=== PATIENT | female | born 1975 | race Caucasian/White ===

== ENCOUNTER 2016-08-11 21:59 | Inpatient (IN) ==
[2016-08-11 22:33] LABS: Bilirubin,Urine Negative (Negative); Blood,Urine Moderate (Negative); Clarity,Urine Cloudy (Clear); Color,Urine Dark Yellow (Yellow); Glucose,Urine (UA) Normal (Normal); Ketones,Urine Trace mg/dL (Negative); Leukocyte Esterase,Urine Small (Negative); Nitrite,Urine Negative (Negative); PH,Urine 5.5 pH Units (5.0-8.0); Protein,Urine 100 mg/dL (Neg-Trace); Specific Gravity,Urine 1.025 (1.010-1.025); Urobilinogen,Urine Normal (Normal)
[2016-08-11 22:35] LABS: Bacteria,Urine Many per hpf (None-Few); Squamous Epithelial Cell,Urine Many per lpf (None-Few); WBC,Urine 30-50 per hpf (0-3)
[2016-08-11 22:41] LABS: Amphetamine Screen,Urine Negative ng/mL (Cutoff=1000); Barbiturate Screen,Urine Negative ng/mL (Cutoff=200); Benzodiazepines Screen,Urine Negative ng/mL (Cutoff=200); Cannabinoid Screen,Urine Negative ng/mL (Cutoff = 50); Cocaine Screen,Urine Negative ng/mL (Cutoff= 300); Opiate Screen,Urine Negative ng/mL (Cutoff=300); Phencyclidine Screen,Urine Negative ng/mL (Cutoff=25)
[2016-08-11 22:45] LABS: Hyaline Casts,Urine None Seen per lpf (None-Few)
[2016-08-11 22:53] LABS: Basophils % 0.4 %; Eosinophils # 0.1 K/mcL (0.0-0.6); Eosinophils % 0.7 %; Hematocrit 44.5 % (35.3-44.9); Hemoglobin 14.2 g/dL (11.5-15.4); Immature Granulocytes % 0.3 % (0-4); Lymphocytes # 2.5 K/mcL (0.6-4.6); Lymphocytes % 36.6 %; Mean Corpuscular HGB Conc 31.9 g/dL (31.6-35.5); Mean Corpuscular Volume 100.2 fL (83.0-100.0); Mean Platelet Volume 9.2 fL (9.4-12.4); Monocytes # 0.2 K/mcL (0.0-1.3); Monocytes % 3.4 %; Platelet Count 195 K/mcL (140-400); Red Blood Count 4.44 M/mcL (3.82-4.97); Segmented Neutrophils % 58.6 %
[2016-08-11 23:10] LABS: Acetaminophen < 1.0 mcg/mL (10-30); Alanine Aminotransferase 50 Units/L (0-55); Albumin 4.2 g/dL (3.5-5.0); Albumin/Globulin Ratio 1.1 (1.1-2.2); Alkaline Phosphatase 89 Units/L (38-126); Aspartate Amino Transferase 73 Units/L (5-34); BUN/Creatinine Ratio 12 (6-26); Bilirubin,Direct 0.3 mg/dL (0.0-0.5); Bilirubin,Indirect 0.3 mg/dL (0.0-1.2); Bilirubin,Total 0.6 mg/dL (0.2-1.2); Blood Urea Nitrogen 10 mg/dL (7-20); Calcium 8.7 mg/dL (8.6-10.8); Carbon Dioxide 19 mEq/L (19-29); Chloride 105 mEq/L (98-109); Ethanol 350 mg/dL (0-10); Globulin 3.8 g/dL (2.4-3.5); Glucose 70 mg/dL (70-99); Osmolality,Calculated 293 (280-300); Potassium 3.4 mEq/L (3.5-4.5); Salicylate < 5.0 mg/dL (15-30); Sodium 143 mEq/L (136-145); eGFR For African Americans > 60 (> 60); eGFR For Non-African Americans > 60 (> 60)
[2016-08-12] MEDS ORDERED: *HR* LORazepam 1 MG TABLET PO ONE (01:26)
[2016-08-12] MEDS ORDERED: Ondansetron ODT 4 MG TAB.RAPDIS SL ONE (01:35)
--- NOTE | 2016-08-12 03:36 | Emergency Department Note ---
Disposition Clinical Impression: Suicidal ideation Alcohol intoxication Qualifiers: Complication of substance-induced condition: uncomplicated Qualified Code(s): F10.120 - Alcohol abuse with intoxication, uncomplicated Disposition: Still a Patient Condition: Good Referrals: NO,PCP [Primary Care Provider] - Forms: ED Satisfaction Letter Time of Disposition: 06:39 Psych HPI - General Chief Complaint: ED Psychiatric Symptoms Stated Complaint: SI//ETOH Time Seen by Provider: 08/11/16 22:56 Source: patient Nursing Notes Reviewed: Yes Vital Signs Reviewed: Yes - History of Present Illness Pt complaint: suicidal ideation, feels depressed Onset (ago): month(s) Duration: getting worse History of similar episodes: Yes Improves with: none Worsens with: none Context: not taking psychiatric medications, significant life stressor Alleged intoxication: Yes Associated Psychiatric Symptoms: depression, suicidal ideation Associated symptoms: Denies: headache, shortness of breath, nausea, vomiting Self harm or harm to others: admits thoughts of self harm - Related Data Home Medications Medication Instructions Recorded Confirmed Naratriptan HCl [Amerge] 2.5 mg PO DAILY PRN 06/09/15 03/10/16 Quetiapine Fumarate [Seroquel] 25 mg PO HS 06/09/15 03/10/16 Previous Rx's Medication Instructions Recorded Potassium Chloride 20 meq PO DAILY #30 tab.er.prt 06/11/15 Nitrofurantoin (BID) [Macrobid] 100 mg PO BID #14 capsule 03/10/16 Allergies Allergy/AdvReac Type Severity Reaction Status Date / Time azithromycin [From Zithromax] Allergy Vomiting Verified 03/10/16 02:15 cephalexin [From Keflex] Allergy Vomiting Verified 03/10/16 02:15 codeine Allergy Abdominal Verified 03/10/16 02:15 Pain diphenhydramine Allergy Swelling Verified 03/10/16 02:15 [From Benadryl] of Lip/Tongue/Throat Penicillins [PCN] Allergy Hives Verified 03/10/16 02:15 All systems ED: reviewed and negative except as stated. Constitutional: Denies: fever, chills Eyes: Denies: eye pain ENT ED: Denies: ear pain Cardiovascular: Denies: chest pain Respiratory: Denies: cough, dyspnea Gastrointestinal: Denies: abdominal pain, nausea, vomiting Genitourinary: Denies: dysuria Musculoskeletal: Denies: back pain Integumentary: Denies: rash, abrasion Neurological: Denies: headache Psychiatric: Denies: anxiety Endocrine: Denies: fatigue Hematological/Lymphatic: Denies: easy bleeding Allergic/Immunologic: Denies: facial swelling Past Medical History - Past Medical History Medical history: Reports: migraine Psychiatric history: Reports: depression, prior suicide attempt, previous psychiatric hospitalization 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 history: Reports: bilateral tubal ligation - Social History Smoking Status: Current every day smoker Smokeless Tobacco Status: No Alcohol use: Reports: heavy, recent Drug use: Reports: none Physical Exam - General Limitations: no limitations General appearance: alert, in no apparent distress - Head Head exam: atraumatic, normocephalic - Eye Eye exam: Present: EOMI - ENT ENT exam: mucous membranes moist - Neck Neck exam: Present: full ROM - Chest Chest inspection: Present: symmetric chest wall rise - Cardiovascular Cardiovascular exam: Present: regular rate - Abdominal Exam Abdominal exam: Present: soft, Non-Tender - Extremities Exam Extremities exam: Present: full ROM, normal capillary refill - Back Exam Back exam: Present: full ROM - Neurological Exam Neurological exam: Present: alert - Psychiatric Psychiatric exam: Present: normal affect, normal mood - Skin Skin exam: Present: warm, dry, intact, normal color. Absent: rash, cyanosis, diaphoresis Course Course Narrative: Pt presents from home with SI. Pt seen and examined. Friends/family at bedside. Pt hesitent to reveal details but she does admit SI worsening depression and significant life stressors. Initial HR tachy, however this has improved during my exam. Work up initiated for 1a eval - Reevaluation(s) Reevaluation #1: Pt ETOH 350. Pt denies h/o withdrawl. Discussed patient with hospitalist Dr. Jacobs, specifically admission due to intoxication until medically cleared for evaluation. not agreeable to admission at this time. Time: 03:30 Reevaluation #2: Due to change, care of this patient was transferred to md from [facility]. Please see their earlier documentation for details. Time: 06:15 Vital Signs Temperature 98.1 F 08/11/16 22:03 Pulse Rate 143 08/11/16 22:03 Respiratory Rate 14 08/11/16 22:03 Blood Pressure 146/93 08/11/16 22:03 O2 Sat by Pulse Oximetry 95 08/11/16 22:03 Temperature 98.1 F 08/11/16 22:03 Pulse Rate 85 08/12/16 04:11 Respiratory Rate 16 08/12/16 04:11 Blood Pressure 115/77 08/12/16 04:11 O2 Sat by Pulse Oximetry 98 08/12/16 04:11 Oxygen Delivery Oxygen Delivery Room Air Psych - Lab Data Result diagrams: 08/11/16 22:44 08/11/16 22:44 Lab Results 08/11/16 08/11/16 08/11/16 Range/Units 22:26 22:26 22:44 WBC 6.8 (4.3-11.1) K/mcL RBC 4.44 (3.82-4.97) M/mcL Hgb 14.2 (11.5-15.4) g/dL Hct 44.5 (35.3-44.9) % MCV 100.2 H (83.0-100.0) fL MCH 32.0 (28.0-33.3) pg MCHC 31.9 (31.6-35.5) g/dL RDW 14.0 (11.5-14.5) % Plt Count 195 (140-400) K/mcL MPV 9.2 L (9.4-12.4) fL Immature Gran % 0.3 (0-4) % Seg Neutrophils % 58.6 % Lymphocytes % 36.6 % Monocytes % 3.4 % Eosinophils % 0.7 % Basophils % 0.4 % Neutrophils # 4.0 (1.6-8.9) K/mcL Lymphocytes # 2.5 (0.6-4.6) K/mcL Monocytes # 0.2 (0.0-1.3) K/mcL Eosinophils # 0.1 (0.0-0.6) K/mcL Basophils # 0.0 (0.0-0.2) K/mcL Sodium (136-145) mEq/L Potassium (3.5-4.5) mEq/L Chloride (98-109) mEq/L Carbon Dioxide (19-29) mEq/L BUN (7-20) mg/dL Creatinine (0.57-1.11) mg/dL Est GFR ( Amer) (> 60) Est GFR (Non-Af Amer) (> 60) BUN/Creatinine Ratio (6-26) Glucose (70-99) mg/dL Calculated Osmolality (280-300) Calcium (8.6-10.8) mg/dL Total Bilirubin (0.2-1.2) mg/dL Direct Bilirubin (0.0-0.5) mg/dL Indirect Bilirubin (0.0-1.2) mg/dL AST (5-34) Units/L ALT (0-55) Units/L Alkaline Phosphatase (38-126) Units/L Serum Total Protein (6.0-8.3) g/dL Albumin (3.5-5.0) g/dL Globulin (2.4-3.5) g/dL Albumin/Globulin Ratio (1.1-2.2) TSH (0.350-4.840) mcIU/mL Serum , Qual (Negative) Urine Color Dark Yellow (Yellow) Urine Clarity Cloudy A (Clear) Urine pH 5.5 (5.0-8.0) pH Units Ur Specific [place] 1.025 (1.010-1.025) Urine Protein 100 H (Neg-Trace) mg/dL Urine Glucose (UA) Normal (Normal) mg/dL Urine Ketones Trace H (Negative) mg/dL Urine Blood Moderate H (Negative) Urine Nitrite Negative (Negative) Urine Bilirubin Negative (Negative) Urine Urobilinogen Normal (Normal) mg/dL Ur Leukocyte Esterase Small H (Negative) Urine Microscopic RBC 3-5 H (0-3) per hpf Urine Microscopic WBC 30-50 H (0-3) per hpf Ur Squamous Epith Cells Many H (None-Few) per lpf Urine Bacteria Many H (None-Few) per hpf Hyaline Casts None Seen (None-Few) per lpf Salicylates (15-30) mg/dL Urine Opiates Screen Negative (Uastae=527) ng/mL Acetaminophen (10-30) mcg/mL Ur Barbiturates Screen Negative (Zwebxl=984) ng/mL Ur Phencyclidine Scrn Negative (Cutoff=25) ng/mL Ur Amphetamines Screen Negative (Grutle=5252) ng/mL U Benzodiazepines Scrn Negative (Yaqihf=873) ng/mL Urine Cocaine Screen Negative (Cutoff= 300) ng/mL U Marijuana (THC) Screen Negative (Cutoff = 50) ng/mL Ethyl Alcohol (0-10) mg/dL 03/04/17 03/04/17 Range/Units 22:44 22:44 WBC (4.3-11.1) K/mcL RBC (3.82-4.97) M/mcL Hgb (11.5-15.4) g/dL Hct (35.3-44.9) % MCV (83.0-100.0) fL MCH (28.0-33.3) pg MCHC (31.6-35.5) g/dL RDW (11.5-14.5) % Plt Count (140-400) K/mcL MPV (9.4-12.4) fL Immature Gran % (0-4) % Seg Neutrophils % % Lymphocytes % % Monocytes % % Eosinophils % % Basophils % % Neutrophils # (1.6-8.9) K/mcL Lymphocytes # (0.6-4.6) K/mcL Monocytes # (0.0-1.3) K/mcL Eosinophils # (0.0-0.6) K/mcL Basophils # (0.0-0.2) K/mcL Sodium 143 (136-145) mEq/L Potassium 3.4 L (3.5-4.5) mEq/L Chloride 105 (98-109) mEq/L Carbon Dioxide 19 (19-29) mEq/L BUN 10 (7-20) mg/dL Creatinine 0.86 (0.57-1.11) mg/dL Est GFR ( Amer) > 60 (> 60) Est GFR (Non-Af Amer) > 60 (> 60) BUN/Creatinine Ratio 12 (6-26) Glucose 70 (70-99) mg/dL Calculated Osmolality 293 (280-300) Calcium 8.7 (8.6-10.8) mg/dL Total Bilirubin 0.6 (0.2-1.2) mg/dL Direct Bilirubin 0.3 (0.0-0.5) mg/dL Indirect Bilirubin 0.3 (0.0-1.2) mg/dL AST 73 H (5-34) Units/L ALT 50 (0-55) Units/L Alkaline Phosphatase 89 (38-126) Units/L Serum Total Protein 8.0 (6.0-8.3) g/dL Albumin 4.2 (3.5-5.0) g/dL Globulin 3.8 H (2.4-3.5) g/dL Albumin/Globulin Ratio 1.1 (1.1-2.2) TSH 0.610 (0.350-4.840) mcIU/mL Serum , Qual Negative (Negative) Urine Color (Yellow) Urine Clarity (Clear) Urine pH (5.0-8.0) pH Units Ur Specific [place] (1.010-1.025) Urine Protein (Neg-Trace) mg/dL Urine Glucose (UA) (Normal) mg/dL Urine Ketones (Negative) mg/dL Urine Blood (Negative) Urine Nitrite (Negative) Urine Bilirubin (Negative) Urine Urobilinogen (Normal) mg/dL Ur Leukocyte Esterase (Negative) Urine Microscopic RBC (0-3) per hpf Urine Microscopic WBC (0-3) per hpf Ur Squamous Epith Cells (None-Few) per lpf Urine Bacteria (None-Few) per hpf Hyaline Casts (None-Few) per lpf Salicylates < 5.0 L (15-30) mg/dL Urine Opiates Screen (Mhqfxj=729) ng/mL Acetaminophen < 1.0 L (10-30) mcg/mL Ur Barbiturates Screen (Trvgpg=287) ng/mL Ur Phencyclidine Scrn (Cutoff=25) ng/mL Ur Amphetamines Screen (Mzwhwg=5948) ng/mL U Benzodiazepines Scrn (Lkxmiy=225) ng/mL Urine Cocaine Screen (Cutoff= 300) ng/mL U Marijuana (THC) Screen (Cutoff = 50) ng/mL Ethyl Alcohol 350 H (0-10) mg/dL Psychiatric Medical Clearance - Medical Clearance Checklist Medical History: No Social History Section defined Current Vitals: Last Vital Signs Temp 98.1 F 08/11/16 22:03 Pulse 85 08/12/16 04:11 Resp 16 08/12/16 04:11 BP 115/77 08/12/16 04:11 Pulse Ox 98 08/12/16 04:11 Psychiatric Lab Panel: Drug Levels and Toxicity 08/11/16 08/11/16 22:26 22:44 Urine Opiates Screen Negative Acetaminophen < 1.0 L Ur Barbiturates Screen Negative Ur Phencyclidine Scrn Negative Ur Amphetamines Screen Negative U Benzodiazepines Scrn Negative Urine Cocaine Screen Negative U Marijuana (THC) Screen Negative Ethyl Alcohol 350 H Abnormal Labs: Abnormal lab results MCV 100.2 fL (83.0-100.0) H 08/11/16 22:44 MPV 9.2 fL (9.4-12.4) L 08/11/16 22:44 Potassium 3.4 mEq/L (3.5-4.5) L 08/11/16 22:44 AST 73 Units/L (5-34) H 08/11/16 22:44 Globulin 3.8 g/dL (2.4-3.5) H 08/11/16 22:44 Urine Clarity Cloudy (Clear) A 08/11/16 22:26 Urine Protein 100 mg/dL (Neg-Trace) H 08/11/16 22:26 Urine Ketones Trace mg/dL (Negative) H 08/11/16 22:26 Urine Blood Moderate (Negative) H 08/11/16 22:26 Ur Leukocyte Esterase Small (Negative) H 08/11/16 22:26 Urine Microscopic RBC 3-5 per hpf (0-3) H 08/11/16 22:26 Urine Microscopic WBC 30-50 per hpf (0-3) H 08/11/16 22:26 Ur Squamous Epith Cells Many per lpf (None-Few) H 08/11/16 22:26 Urine Bacteria Many per hpf (None-Few) H 08/11/16 22:26 Salicylates < 5.0 mg/dL (15-30) L 08/11/16 22:44 Acetaminophen < 1.0 mcg/mL (10-30) L 08/11/16 22:44 Ethyl Alcohol 350 mg/dL (0-10) H 08/11/16 22:44 Attestation Statement - Attestation Attestation: I am signing this chart in accordance with current hospital policy. I did not perform a history and physical exam on this patient. I was not directly involved in this patients care during their Emergency Department visit. Wally Glover MD
--- NOTE | 2016-08-12 11:33 | Emergency Department Note ---
Disposition Clinical Impression: Suicidal ideation, Acute anxiety, UTI (urinary tract infection) Alcohol intoxication Qualifiers: Complication of substance-induced condition: uncomplicated Qualified Code(s): F10.120 - Alcohol abuse with intoxication, uncomplicated Disposition: Admitted As Inpatient Condition: Good Referrals: NO,PCP [Primary Care Provider] - Forms: ED Satisfaction Letter General Adult HPI - General Chief complaint: ED Psychiatric Symptoms Stated complaint: SI//ETOH Time Seen by Provider: 08/11/16 22:56 Source: patient Limitations: no limitations - History of Present Illness HPI Narrative: The patient was initially evaluated in the ED, and checked out to the day shift staff. See previous notes for detail. The patient reports that she has been having some trouble with her , she was drinking alcohol, and felt somewhat anxious and perhaps like harming herself. She called some relatives who had her brought to the hospital. The patient states she feels much better now. She does not feel like harming herself at this time. She denies any intentional overdose or suicide attempt. There is no history suggestive of intentional drug overdose or acute self-injurious behavior. The patient denies any acute complaints apart from a slight headache. The patient has had no head trauma there is no history of neck stiffness rash fever convulsion or confusion or trouble walking talking hearing seeing or speaking. The patient denies any shortness of breath chest pain or abdominal pain. She threw up once yesterday which was nonbloody. There is no history of diarrhea. No history of bloody stool. There is no history of seizure or confusion. The patient and I drinking on a regular basis and also denies previous DTs or seizures. Essentially she reports she feels much better now. The initial plan was to wait to the patient's alcohol level is less than 80 and consult the psychiatric counselors. Onset (ago): hour(s) Pain Scale: 7 - Related Data Home Medications Medication Instructions Recorded Confirmed Naratriptan HCl [Amerge] 2.5 mg PO DAILY PRN 06/09/15 03/10/16 Quetiapine Fumarate [Seroquel] 25 mg PO HS 06/09/15 03/10/16 Previous Rx's Medication Instructions Recorded Potassium Chloride 20 meq PO DAILY #30 tab.er.prt 06/11/15 Nitrofurantoin (BID) [Macrobid] 100 mg PO BID #14 capsule 03/10/16 Allergies Allergy/AdvReac Type Severity Reaction Status Date / Time azithromycin [From Zithromax] Allergy Vomiting Verified 03/10/16 02:15 cephalexin [From Keflex] Allergy Vomiting Verified 03/10/16 02:15 codeine Allergy Abdominal Verified 03/10/16 02:15 Pain diphenhydramine Allergy Swelling Verified 03/10/16 02:15 [From Benadryl] of Lip/Tongue/Throat Penicillins [PCN] Allergy Hives Verified 03/10/16 02:15 All systems ED: reviewed and negative except as stated. Constitutional: Denies: fever, chills Eyes: Denies: eye pain ENT ED: Denies: ear pain Cardiovascular: Denies: chest pain Respiratory: Denies: cough, dyspnea Gastrointestinal: Denies: abdominal pain, nausea, vomiting Genitourinary: Denies: dysuria Musculoskeletal: Denies: back pain Integumentary: Denies: rash, abrasion Neurological: Denies: headache Psychiatric: Denies: anxiety Endocrine: Denies: fatigue Hematological/Lymphatic: Denies: easy bleeding Allergic/Immunologic: Denies: facial swelling Past Medical History - Past Medical History Medical history: Reports: migraine Psychiatric history: Reports: depression, prior suicide attempt, previous psychiatric hospitalization 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 Absent: scleral icterus, conjunctival injection, miosis, mydriasis - ENT ENT exam: normal exam, normal oropharynx, mucous membranes moist, TM's normal bilaterally - Neck Neck exam: Present: normal inspection, full ROM, trachea midline. Absent: tenderness - Chest Chest inspection: Present: symmetric chest wall rise. Absent: tenderness - Respiratory Respiratory exam: Present: normal lung sounds bilaterally. Absent: respiratory distress - Cardiovascular Cardiovascular exam: Present: regular rate, normal rhythm, normal heart sounds - Abdominal Exam Abdominal exam: Present: soft, Non-Tender, normal bowel sounds. Absent: tenderness, distention, guarding, rebound, rigidity - Extremities Exam Extremities exam: Present: normal inspection, full ROM, normal capillary refill. Absent: tenderness, pedal edema, joint swelling, calf tenderness - Expanded Lower Extremity Exam Neurovascular/Tendon exam: Absent: motor deficit, sensory deficit, tendon deficit, extremity cold to touch, pallor - Back Exam Back exam: Present: normal inspection, full ROM. Absent: tenderness, CVA tenderness (R), CVA tenderness (L), vertebral tenderness - Neurological Exam Neurological exam: Present: alert, oriented X3, CN II-XII intact. Absent: motor sensory deficit - Psychiatric Psychiatric exam: Present: normal affect, normal mood - Skin Skin exam: Present: warm, dry, intact, normal color. Absent: rash, cyanosis, diaphoresis, erythema, pallor, mottled Course Vital Signs Temperature 98.1 F 08/11/16 22:03 Pulse Rate 143 08/11/16 22:03 Respiratory Rate 14 08/11/16 22:03 Blood Pressure 146/93 08/11/16 22:03 O2 Sat by Pulse Oximetry 95 08/11/16 22:03 Temperature 98.8 F 08/12/16 10:37 Pulse Rate 118 08/12/16 10:37 Respiratory Rate 18 08/12/16 10:37 Blood Pressure 134/98 08/12/16 10:37 O2 Sat by Pulse Oximetry 95 08/12/16 10:37 Oxygen Delivery Oxygen Delivery Room Air Medical Decision Making - MDM Narrative Medical decision making narrative: The patient appears to be stable, she has been resting comfortably in the emergency department and eating and drinking. A repeat alcohol level was less than 10. The psychiatric counselors evaluated the patient and pink slipped the patient, she is being admitted for psychiatric care. A dose of Cipro was given for her UTI. The patient appears to be stable. - Lab Data Lab results reviewed: Yes I reviewed the patient's lab results. Result diagrams: 08/11/16 22:44 08/11/16 22:44 Lab Results 08/11/16 08/11/16 08/11/16 Range/Units 22:26 22:26 22:44 WBC 6.8 (4.3-11.1) K/mcL RBC 4.44 (3.82-4.97) M/mcL Hgb 14.2 (11.5-15.4) g/dL Hct 44.5 (35.3-44.9) % MCV 100.2 H (83.0-100.0) fL MCH 32.0 (28.0-33.3) pg MCHC 31.9 (31.6-35.5) g/dL RDW 14.0 (11.5-14.5) % Plt Count 195 (140-400) K/mcL MPV 9.2 L (9.4-12.4) fL Immature Gran % 0.3 (0-4) % Seg Neutrophils % 58.6 % Lymphocytes % 36.6 % Monocytes % 3.4 % Eosinophils % 0.7 % Basophils % 0.4 % Neutrophils # 4.0 (1.6-8.9) K/mcL Lymphocytes # 2.5 (0.6-4.6) K/mcL Monocytes # 0.2 (0.0-1.3) K/mcL Eosinophils # 0.1 (0.0-0.6) K/mcL Basophils # 0.0 (0.0-0.2) K/mcL Sodium (136-145) mEq/L Potassium (3.5-4.5) mEq/L Chloride (98-109) mEq/L Carbon Dioxide (19-29) mEq/L BUN (7-20) mg/dL Creatinine (0.57-1.11) mg/dL Est GFR ( Amer) (> 60) Est GFR (Non-Af Amer) (> 60) BUN/Creatinine Ratio (6-26) Glucose (70-99) mg/dL Calculated Osmolality (280-300) Calcium (8.6-10.8) mg/dL Total Bilirubin (0.2-1.2) mg/dL Direct Bilirubin (0.0-0.5) mg/dL Indirect Bilirubin (0.0-1.2) mg/dL AST (5-34) Units/L ALT (0-55) Units/L Alkaline Phosphatase (38-126) Units/L Serum Total Protein (6.0-8.3) g/dL Albumin (3.5-5.0) g/dL Globulin (2.4-3.5) g/dL Albumin/Globulin Ratio (1.1-2.2) TSH (0.350-4.840) mcIU/mL Serum , Qual (Negative) Urine Color Dark Yellow (Yellow) Urine Clarity Cloudy A (Clear) Urine pH 5.5 (5.0-8.0) pH Units Ur Specific [place] 1.025 (1.010-1.025) Urine Protein 100 H (Neg-Trace) mg/dL Urine Glucose (UA) Normal (Normal) mg/dL Urine Ketones Trace H (Negative) mg/dL Urine Blood Moderate H (Negative) Urine Nitrite Negative (Negative) Urine Bilirubin Negative (Negative) Urine Urobilinogen Normal (Normal) mg/dL Ur Leukocyte Esterase Small H (Negative) Urine Microscopic RBC 3-5 H (0-3) per hpf Urine Microscopic WBC 30-50 H (0-3) per hpf Ur Squamous Epith Cells Many H (None-Few) per lpf Urine Bacteria Many H (None-Few) per hpf Hyaline Casts None Seen (None-Few) per lpf Salicylates (15-30) mg/dL Urine Opiates Screen Negative (Pppbkc=928) ng/mL Acetaminophen (10-30) mcg/mL Ur Barbiturates Screen Negative (Gmbiim=139) ng/mL Ur Phencyclidine Scrn Negative (Cutoff=25) ng/mL Ur Amphetamines Screen Negative (Xaplgw=6502) ng/mL U Benzodiazepines Scrn Negative (Hvbljs=116) ng/mL Urine Cocaine Screen Negative (Cutoff= 300) ng/mL U Marijuana (THC) Screen Negative (Cutoff = 50) ng/mL Ethyl Alcohol (0-10) mg/dL 08/11/16 08/11/16 08/12/16 Range/Units 22:44 22:44 12:41 WBC (4.3-11.1) K/mcL RBC (3.82-4.97) M/mcL Hgb (11.5-15.4) g/dL Hct (35.3-44.9) % MCV (83.0-100.0) fL MCH (28.0-33.3) pg MCHC (31.6-35.5) g/dL RDW (11.5-14.5) % Plt Count (140-400) K/mcL MPV (9.4-12.4) fL Immature Gran % (0-4) % Seg Neutrophils % % Lymphocytes % % Monocytes % % Eosinophils % % Basophils % % Neutrophils # (1.6-8.9) K/mcL Lymphocytes # (0.6-4.6) K/mcL Monocytes # (0.0-1.3) K/mcL Eosinophils # (0.0-0.6) K/mcL Basophils # (0.0-0.2) K/mcL Sodium 143 (136-145) mEq/L Potassium 3.4 L (3.5-4.5) mEq/L Chloride 105 (98-109) mEq/L Carbon Dioxide 19 (19-29) mEq/L BUN 10 (7-20) mg/dL Creatinine 0.86 (0.57-1.11) mg/dL Est GFR ( Amer) > 60 (> 60) Est GFR (Non-Af Amer) > 60 (> 60) BUN/Creatinine Ratio 12 (6-26) Glucose 70 (70-99) mg/dL Calculated Osmolality 293 (280-300) Calcium 8.7 (8.6-10.8) mg/dL Total Bilirubin 0.6 (0.2-1.2) mg/dL Direct Bilirubin 0.3 (0.0-0.5) mg/dL Indirect Bilirubin 0.3 (0.0-1.2) mg/dL AST 73 H (5-34) Units/L ALT 50 (0-55) Units/L Alkaline Phosphatase 89 (38-126) Units/L Serum Total Protein 8.0 (6.0-8.3) g/dL Albumin 4.2 (3.5-5.0) g/dL Globulin 3.8 H (2.4-3.5) g/dL Albumin/Globulin Ratio 1.1 (1.1-2.2) TSH 0.610 (0.350-4.840) mcIU/mL Serum , Qual Negative (Negative) Urine Color (Yellow) Urine Clarity (Clear) Urine pH (5.0-8.0) pH Units Ur Specific [place] (1.010-1.025) Urine Protein (Neg-Trace) mg/dL Urine Glucose (UA) (Normal) mg/dL Urine Ketones (Negative) mg/dL Urine Blood (Negative) Urine Nitrite (Negative) Urine Bilirubin (Negative) Urine Urobilinogen (Normal) mg/dL Ur Leukocyte Esterase (Negative) Urine Microscopic RBC (0-3) per hpf Urine Microscopic WBC (0-3) per hpf Ur Squamous Epith Cells (None-Few) per lpf Urine Bacteria (None-Few) per hpf Hyaline Casts (None-Few) per lpf Salicylates < 5.0 L (15-30) mg/dL Urine Opiates Screen (Fwtdal=639) ng/mL Acetaminophen < 1.0 L (10-30) mcg/mL Ur Barbiturates Screen (Jsvzeu=602) ng/mL Ur Phencyclidine Scrn (Cutoff=25) ng/mL Ur Amphetamines Screen (Sueqkk=2274) ng/mL U Benzodiazepines Scrn (Orgnud=394) ng/mL Urine Cocaine Screen (Cutoff= 300) ng/mL U Marijuana (THC) Screen (Cutoff = 50) ng/mL Ethyl Alcohol 350 H < 10 (0-10) mg/dL
[2016-08-12] MEDS ORDERED: Acetaminophen 325 MG TABLET PO ONE (11:35)
[2016-08-12] MEDS ORDERED: Haloperidol Lactate 5 MG/ML VIAL IM PRN (16:49)
[2016-08-12] MEDS ORDERED: *HR* LORazepam 2 MG/ML VIAL IM PRN (16:49)
[2016-08-12] MEDS ORDERED: MOM Conc 10 ML UD.LIQ PO PRN (16:49)
[2016-08-12] MEDS ORDERED: Mag Hydrox/Al Hydrox/Simeth 30 ML UDC PO PRN (16:49)
[2016-08-12] MEDS: diazePAM 10 MG TABLET PO SCH ×2 (17:50→21:42)
[2016-08-12] MEDS: traZODone 50 MG TABLET PO PRN (21:41)
[2016-08-13] MEDS: diazePAM 10 MG TABLET PO SCH ×3 (08:53→20:51)
[2016-08-13] MEDS: Nicotine 2 MG GUM BC PRN ×2 (10:25→17:01)
--- NOTE | 2016-08-13 12:06 | Psychiatry History & Physical ---
Date of Encounter: 08/13/16 Time of Encounter: 12:11 History of Present Illness Patient Stated Chief Complaint: Suicidal, intoxicated Medicare Admission Attestation: For traditional Medicare patients the provided hospital inpatient services are reasonable and necessary and in the case of services not specified as inpatient -only under 42 CFR 419.22 (n), that they are appropriately provided as inpatient services in accordance 42 CFR 412.3. For [facility] the patient may reasonably be expected to be discharged or transferred to a hospital within 96 hours after admission to the Critical [facility]. Admitted From: Emergency Dept History of Present Illness: Ms. Spangler is a 41 year old female admitted from the emergency room with suicidal ideation and intoxication with alcohol, alcohol level was 350 on admission. Patient stressed out by marital problems and she admitted to using alcohol 3-4 times a week, she has been treated with medication and past and she could not tolerate any antidepressants because of sexual side effects, also she is having difficulty with sleep and most sleep medications are not effective like trazodone and Seroquel and Ambien. 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 Patient denies any previous psychiatric admission or suicidal attempts. Past Med Surg Social Fam HX - Past Medical History Medical history: migraine - Past Psychiatric History Psychiatric history: Reports: depression Family psychiatric history: Unknown Family History of Suicide: Unknown - Social History Smoking Status: Current every day smoker Smokeless Tobacco Status: No Alcohol use: heavy, recent Drug use: none - Family History Father Living Status: Hx Family Cardiac Disorders: Yes (by-pass x5) Medications & Allergies No Known Home Drugs 08/12/16 [History] Allergies azithromycin [From Zithromax] Allergy (Verified 03/10/16 02:15) Vomiting cephalexin [From Keflex] Allergy (Verified 03/10/16 02:15) Vomiting codeine Allergy (Verified 03/10/16 02:15) Abdominal Pain diphenhydramine [From Benadryl] Allergy (Verified 03/10/16 02:15) Swelling of Lip/Tongue/Throat Penicillins [PCN] Allergy (Verified 03/10/16 02:15) Hives quetiapine [From Seroquel] Adverse Reaction (Verified 08/12/16 17:00) Hallucinating Review of Systems Psychiatric: Reports: suicidal ideation Mental Status Exam Patient orientation: Yes Person, Yes Time, Yes Place Level of alertness: Alert Patient appearance: Appropriate, Well Groomed Behavior: calm, cooperative, anxious Psychomotor activity: Normal Eye contact: Maintains Eye Contact Mood description: Depressed, Anxious Affect description: constricted, dysphoric Speech pattern: Normal rate, Normal rhythm, Normal tone, Impoverished Speech volume: Normal Thought process: Linear, Goal Oriented Thought content: Yes Suicidal ideation, No Homicidal ideation, No Overt delusions Perceptual disturbances: No Auditory hallucinations, No Visual hallucinations Attention span: Unable to Sustain Attention Memory description: Grossly Intact Patient reliability: Questionable Historian Intelligence estimate: Average Judgment: Limited Insight: Partial Results - Vital Signs Vital signs: Temp Pulse Resp BP Pulse Ox 98.1 F 77 16 121/84 95 08/13/16 08:00 08/13/16 08:00 08/13/16 08:00 08/13/16 08:00 08/12/16 10:37 - Labs Labs: Laboratory Last Values WBC 6.8 K/mcL (4.3-11.1) 08/11/16 22:44 RBC 4.44 M/mcL (3.82-4.97) 08/11/16 22:44 Hgb 14.2 g/dL (11.5-15.4) 08/11/16 22:44 Hct 44.5 % (35.3-44.9) 08/11/16 22:44 MCV 100.2 fL (83.0-100.0) H 08/11/16 22:44 MCH 32.0 pg (28.0-33.3) 08/11/16 22:44 MCHC 31.9 g/dL (31.6-35.5) 08/11/16 22:44 RDW 14.0 % (11.5-14.5) 08/11/16 22:44 Plt Count 195 K/mcL (140-400) 08/11/16 22:44 MPV 9.2 fL (9.4-12.4) L 08/11/16 22:44 Immature Gran % 0.3 % (0-4) 08/11/16 22:44 Seg Neutrophils % 58.6 % 08/11/16 22:44 Lymphocytes % 36.6 % 08/11/16 22:44 Monocytes % 3.4 % 08/11/16 22:44 Eosinophils % 0.7 % 08/11/16 22:44 Basophils % 0.4 % 08/11/16 22:44 Neutrophils # 4.0 K/mcL (1.6-8.9) 08/11/16 22:44 Lymphocytes # 2.5 K/mcL (0.6-4.6) 08/11/16 22:44 Monocytes # 0.2 K/mcL (0.0-1.3) 08/11/16 22:44 Eosinophils # 0.1 K/mcL (0.0-0.6) 08/11/16 22:44 Basophils # 0.0 K/mcL (0.0-0.2) 08/11/16 22:44 Sodium 143 mEq/L (136-145) 08/11/16 22:44 Potassium 3.4 mEq/L (3.5-4.5) L 08/11/16 22:44 Chloride 105 mEq/L (98-109) 08/11/16 22:44 Carbon Dioxide 19 mEq/L (19-29) 08/11/16 22:44 BUN 10 mg/dL (7-20) 08/11/16 22:44 Creatinine 0.86 mg/dL (0.57-1.11) 08/11/16 22:44 Est GFR ( Amer) > 60 (> 60) 08/11/16 22:44 Est GFR (Non-Af Amer) > 60 (> 60) 08/11/16 22:44 BUN/Creatinine Ratio 12 (6-26) 08/11/16 22:44 Glucose 70 mg/dL (70-99) 08/11/16 22:44 Calculated Osmolality 293 (280-300) 08/11/16 22:44 Calcium 8.7 mg/dL (8.6-10.8) 08/11/16 22:44 Total Bilirubin 0.6 mg/dL (0.2-1.2) 08/11/16 22:44 Direct Bilirubin 0.3 mg/dL (0.0-0.5) 08/11/16 22:44 Indirect Bilirubin 0.3 mg/dL (0.0-1.2) 08/11/16 22:44 AST 73 Units/L (5-34) H 08/11/16 22:44 ALT 50 Units/L (0-55) 08/11/16 22:44 Alkaline Phosphatase 89 Units/L (38-126) 08/11/16 22:44 Serum Total Protein 8.0 g/dL (6.0-8.3) 08/11/16 22:44 Albumin 4.2 g/dL (3.5-5.0) 08/11/16 22:44 Globulin 3.8 g/dL (2.4-3.5) H 08/11/16 22:44 Albumin/Globulin Ratio 1.1 (1.1-2.2) 08/11/16 22:44 TSH 0.610 mcIU/mL (0.350-4.840) 08/11/16 22:44 Serum , Qual Negative (Negative) 08/11/16:44 Urine Color Dark Yellow (Yellow) 08/11/16 22: Urine Clarity Cloudy (Clear) A 08/11/16 22: Urine pH 5.5 pH Units (5.0-8.0) 08/11/16 22:26 Ur Specific [place] 1.025 (1.010-1.025) 08/11/16 22:26 Urine Protein 100 mg/dL (Neg-Trace) H 08/11/16 22:26 Urine Glucose (UA) Normal mg/dL (Normal) 08/11/16 22:26 Urine Ketones Trace mg/dL (Negative) H 08/11/16 22:26 Urine Blood Moderate (Negative) H 08/11/16 22:26 Urine Nitrite Negative (Negative) 08/11/16 22:26 Urine Bilirubin Negative (Negative) 08/11/16 22:26 Urine Urobilinogen Normal mg/dL (Normal) 08/11/16 22:26 Ur Leukocyte Esterase Small (Negative) H 08/11/16 22:26 Urine Microscopic RBC 3-5 per hpf (0-3) H 08/11/16 22:26 Urine Microscopic WBC 30-50 per hpf (0-3) H 08/11/16 22:26 Ur Squamous Epith Cells Many per lpf (None-Few) H 08/11/16 22:26 Urine Bacteria Many per hpf (None-Few) H 08/11/16 22:26 Hyaline Casts None Seen per lpf (None-Few) 08/11/16 22:26 Salicylates < 5.0 mg/dL (15-30) L 03/04/17 22:44 Urine Opiates Screen Negative ng/mL (Athuto=846) 08/11/16 22:26 Acetaminophen < 1.0 mcg/mL (10-30) L 08/11/16 22:44 Ur Barbiturates Screen Negative ng/mL (Pwajmh=683) 08/11/16 22:26 Ur Phencyclidine Scrn Negative ng/mL (Cutoff=25) 08/11/16 22:26 Ur Amphetamines Screen Negative ng/mL (Desxoy=9253) 08/11/16 22:26 U Benzodiazepines Scrn Negative ng/mL (Szzlpm=982) 08/11/16 22:26 Urine Cocaine Screen Negative ng/mL (Cutoff= 300) 08/11/16 22:26 U Marijuana (THC) Screen Negative ng/mL (Cutoff = 50) 08/11/16 22:26 Ethyl Alcohol < 10 mg/dL (0-10) 08/12/16 12:41 Assessment and Plan (1) Suicidal ideation Current visit: Yes Status: Acute Plan: Admit inpatient for safety and stabilization, Close observation, Suicide Precautions per unit protocol, Encourage participation in unit milieu, Group Therapy, Monitor sleep, Monitor appetite Additional Plan: Patient is reluctant to be on antidepressants at this time. Risks, benefits, side effects, alternatives discussed w/pt: Yes Patient agreeable to treatment: No (Patient has several allergies to antidepressants and sleep medications) (2) Alcohol intoxication Current visit: Yes Status: Acute Plan: Admit inpatient for safety and stabilization, Close observation, Suicide Precautions per unit protocol, Encourage participation in unit milieu, Group Therapy, Monitor sleep, Monitor appetite Risks, benefits, side effects, alternatives discussed w/pt: Yes Patient agreeable to treatment: Yes Qualifiers: Complication of substance-induced condition: uncomplicated Qualified Code(s ): F10.120 - Alcohol abuse with intoxication, uncomplicated
[2016-08-13] MEDS: traZODone 50 MG TABLET PO PRN (20:50)
[2016-08-13] MEDS: *HR* LORazepam 1 MG TABLET PO PRN (20:51)
[2016-08-14] MEDS: *HR* LORazepam 1 MG TABLET PO PRN ×2 (01:13→23:36)
[2016-08-14] MEDS: Acetaminophen 325 MG TABLET PO PRN (06:23)
[2016-08-14] MEDS: diazePAM 10 MG TABLET PO SCH ×2 (08:44→21:03)
[2016-08-14] MEDS: Nicotine 2 MG GUM BC PRN (09:56)
--- NOTE | 2016-08-14 15:19 | Psychiatry Progress Note ---
Date of Encounter: 08/14/16 Time of Encounter: 15:13 Subjective Interval history: Patient is here for follow-up. She will complaint "sleep and she self isolated not participating in activities. She is depressed and emotional and crying. I reviewed with her previous treatment for sleep and she was agreeable to try medication to help her sleep. I will order Haldol 2 mg at bedtime and evaluates her response tomorrow. I also explained safety procedures and discharge safety ,she is agreeable. Review of Systems Psychiatric: Reports: suicidal ideation Objective: Exam Patient orientation: Yes Person, Yes Time, Yes Place Level of alertness: Alert Patient appearance: Appropriate, Well Groomed Behavior: calm, cooperative, anxious Psychomotor activity: Normal Eye contact: Maintains Eye Contact Mood description: Depressed, Anxious Affect description: constricted, dysphoric Speech pattern: Normal rate, Normal rhythm, Normal tone, Impoverished Speech volume: Normal Thought process: Linear, Goal Oriented Thought content: Yes Suicidal ideation, No Homicidal ideation, No Overt delusions Perceptual disturbances: No Auditory hallucinations, No Visual hallucinations Judgment: Limited Insight: Partial Results - Vital Signs Vital Signs: Temp Pulse Resp BP Pulse Ox 98.1 F 103 18 109/81 95 08/14/16 12:00 08/14/16 12:00 08/14/16 12:00 08/14/16 12:00 08/12/16 10:37 Assessment and Plan (1) Suicidal ideation Current visit: Yes Status: Acute Plan: Continue hospitalization, Close observation, Suicide Precautions per unit protocol, Encourage participation in unit milieu, Group Therapy, Monitor sleep, Monitor appetite Risks, benefits, side effects, alternatives discussed w/pt: Yes Patient agreeable to treatment: No (Patient has several allergies to antidepressants and sleep medications) (2) Alcohol intoxication Current visit: Yes Status: Acute Plan: Continue hospitalization, Close observation, Suicide Precautions per unit protocol, Encourage participation in unit milieu, Group Therapy, Monitor sleep, Monitor appetite Risks, benefits, side effects, alternatives discussed w/pt: Yes Patient agreeable to treatment: Yes Qualifiers: Complication of substance-induced condition: uncomplicated Qualified Code(s ): F10.120 - Alcohol abuse with intoxication, uncomplicated Consult Discharge Plan - Plan Referrals: NO,PCP [Primary Care Provider] -
[2016-08-14] MEDS ORDERED: diazePAM 10 MG TABLET PO ONE (17:11)
[2016-08-14] MEDS: traZODone 50 MG TABLET PO PRN (21:03)
--- NOTE | 2016-08-15 14:20 | Psychiatry Progress Note ---
Date of Encounter: 08/15/16 Time of Encounter: 14:00 Subjective Interval history: Patient she will follow-up. Nursing staff reports she slept better last night after adding Haldol. She continued to feel anxious and helpless but denies suicidal ideation. Safe discharge plans are still ongoing, social sciences professor's in contact with family to discuss safety issues after discharge. Patient continued to be reluctant to add any medications and her insight into alcohol dependence still very poor. Review of Systems Psychiatric: Reports: anxiety, abnormal sleep pattern, suicidal ideation Objective: Exam Patient orientation: Yes Person, Yes Time, Yes Place Level of alertness: Alert Patient appearance: Appropriate, Well Groomed Behavior: calm, cooperative, anxious Psychomotor activity: Normal Eye contact: Maintains Eye Contact Mood description: Depressed, Anxious Affect description: constricted, dysphoric Speech pattern: Normal rate, Normal rhythm, Normal tone, Impoverished Speech volume: Normal Thought process: Linear, Goal Oriented Thought content: Yes Suicidal ideation, No Homicidal ideation, No Overt delusions Perceptual disturbances: No Auditory hallucinations, No Visual hallucinations Judgment: Limited Insight: Partial Results - Vital Signs Vital Signs: Temp Pulse Resp BP Pulse Ox 97.8 F 80 16 94/69 95 08/15/16 08:00 08/15/16 08:00 08/15/16 08:00 08/15/16 08:00 08/12/16 10:37 Assessment and Plan (1) Suicidal ideation Current visit: Yes Status: Acute Plan: Continue hospitalization, Close observation, Suicide Precautions per unit protocol, Encourage participation in unit milieu, Group Therapy, Monitor sleep, Monitor appetite Additional Plan: Will increase Haldol to 5 mg at bedtime to improve sleep. Risks, benefits, side effects, alternatives discussed w/pt: Yes Patient agreeable to treatment: No (Patient has several allergies to antidepressants and sleep medications) (2) Alcohol intoxication Current visit: Yes Status: Acute Plan: Continue hospitalization, Close observation, Suicide Precautions per unit protocol, Encourage participation in unit milieu, Group Therapy, Monitor sleep, Monitor appetite Risks, benefits, side effects, alternatives discussed w/pt: Yes Patient agreeable to treatment: Yes Qualifiers: Complication of substance-induced condition: uncomplicated Qualified Code(s ): F10.120 - Alcohol abuse with intoxication, uncomplicated Consult Discharge Plan - Plan Referrals: NO,PCP [Primary Care Provider] -
[2016-08-15] MEDS: traZODone 50 MG TABLET PO PRN (21:54)
[2016-08-16] MEDS: Acetaminophen 325 MG TABLET PO PRN (12:51)
--- NOTE | 2016-08-16 13:32 | Discharge Summary ---
Date of Encounter: 08/16/16 Time of Encounter: 13:29 Diagnosis - Discharge Diagnosis (1) Suicidal ideation Status: Acute (2) Alcohol intoxication Status: Acute Qualifiers: Complication of substance-induced condition: uncomplicated Qualified Code(s ): F10.120 - Alcohol abuse with intoxication, uncomplicated Medications - Discharge Medications Prescriptions: Haloperidol [Haldol] 5 mg PO HS #30 tablet Haloperidol [Haldol] 5 mg PO HS #30 tablet 08/16/16 [Rx] Allergies azithromycin [From Zithromax] Allergy (Verified 03/10/16 02:15) Vomiting cephalexin [From Keflex] Allergy (Verified 03/10/16 02:15) Vomiting codeine Allergy (Verified 03/10/16 02:15) Abdominal Pain diphenhydramine [From Benadryl] Allergy (Verified 08/15/16 14:45) Swelling of Lip/Tongue/Throat Pt states that she is allergic to a substance that is in the tablet, but is able to take the capsules. Penicillins [PCN] Allergy (Verified 03/10/16 02:15) Hives quetiapine [From Seroquel] Adverse Reaction (Verified 08/12/16 17:00) Hallucinating Provider Date of admission: 08/12/16 16:19 Primary care physician: PCP NO Discharging clinician: José Antonio Ferreira Assessment and Plan - Patient/Caregiver Discharge Instructions Activity: resume usual activities as tolerated Diet: regular diet Additional Instructions: The 24-hour mental health crisis number for [facility] is [phone]. - Follow up Plan Follow up with: [facility] [Other] (To enroll in services you may walk in on any Saturday at 1:45 PM, any Saturday at 11:15 AM, any Saturday at 2:45 PM, or any Saturday at 8:45 AM. Please bring your photo ID and insurance card. When you walk in, your case will be opened and you will be assigned ongoing services for both mental health and substance abuse. You will also be referred to see the psychiatric prescriber.) Functional capacity at discharge: independent ambulation Overall status at discharge: Stable Disposition: Home, Self-Care Hospital Course Hospital course: Ms. Spangler is a 41 year old female admitted for suicidal ideation and intoxication. For details of admission please see H&P On the units patient was monitored for withdrawal from alcohol, she refused to be on any antidepressant medication or more stabilizers. She complained of poor sleep initial and mid insomnia she did not respond to trazodone or Seroquel or Ambien. She was given Haldol 2 mg at bedtime and this helps her sleep but was an inadequate and abuse was increased to 5 mg at bedtime and she slept better. She was medically stable and denies suicidal ideation her discharge plans including rehabilitation for alcohol dependence has been completed by the medical social worker shared the plans with her family. - Time Spent with Patient Total time spent providing and/or coordinating discharge services: Quality - Multiple Antipsychotics Patient discharged on 2 or more antipsychotic medications: No Procedures - Procedures Procedures: Medication Management, Crisis Stabilization, Supportive Therapy, Group Therapy, Psychoeducational Therapy Mental Status Exam - Mental Status Exam Patient orientation: Yes Person, Yes Time, Yes Place Level of alertness: Alert Patient appearance: Appropriate, Well Groomed Behavior: calm, cooperative, anxious Psychomotor activity: Normal Eye contact: Maintains Eye Contact Mood description: Euthymic/stable, Anxious Affect description: constricted, dysphoric Speech pattern: Normal rate, Normal rhythm, Normal tone, Impoverished Speech Volume: Normal Thought process: Linear, Goal Oriented Thought Content: No Suicidal ideation, No Homicidal ideation, No Overt delusions Perceptual Disturbances: No Auditory hallucinations, No Visual hallucinations Judgment: Fair Insight: Partial
[2016-08-16 13:35] VITALS: BP 98/67
== END 2016-08-16 17:25 | disposition home or self-care (01) | DRG 897 ==
LOC: EMEROO 21:59 → SUATTDRO 08-12 16:19 → 1ANU 08-12 16:19
PROVIDERS: ADMIT Psychiatry & Neurology Psychiatry; ATTEND Psychiatry & Neurology Psychiatry